=== PATIENT | female | born 1960 | race Caucasian/White ===

== ENCOUNTER → 2017-05-23 | Outpatient (CLI) | payer OTHER | LOC: FIMAGING 08:20 | DX: Z12.31 Encounter for screening mammogram for malignant neoplasm of breast (principal); Z85.3 Personal history of malignant neoplasm of breast | CPT/HCPCS: G0202 ==

== ENCOUNTER → 2017-12-25 | Outpatient (CLI) | payer OTHER | LOC: FIMAGING 14:08 | DX: R22.9 Localized swelling, mass and lump, unspecified (principal) ==

== ENCOUNTER → 2018-07-02 | Outpatient (CLI) | payer OTHER | LOC: FIMAGING 09:56 | DX: Z12.31 Encounter for screening mammogram for malignant neoplasm of breast (principal); Z80.3 Family history of malignant neoplasm of breast ==